=== PATIENT | male | born 1940 | race Caucasian/White ===

== ENCOUNTER 2018-04-09 16:18 | Emergency (ER) | payer OTHER, SELFPAY ==
[2018-04-09 16:19] VITALS: BP 140/79; PULSE 61; RESP 16; TEMP 36.7; O2SAT 95; BMI 31.4
--- NOTE | 2018-04-09 16:39 | CT_ITS ---
STUDY: CT BRAIN WITHOUT CONTRAST REASON FOR EXAM: Male, 78 years old. Dizziness and fall RADIATION DOSAGE (If Supplied By Facility): CTDIvol = ( 44.99 ) mGy, DLP = ( 728.62 ) mGycm TECHNIQUE: Transaxial CT imaging of the brain was performed without administration of intravenous contrast material. Individualized dose optimization techniques were used for this CT. COMPARISON: None. FINDINGS: Normal soft tissue structures. Normal calvarium. There is an acute on chronic moderately sized left subdural hematoma with largest fluid pocket measuring roughly 11.5 cm AP. Fluid/fluid level is noted. Several internal septations are noted. Small amount of rightward mass effect and midline shift. Midline shift measures roughly 7 mm. No evidence of uncal herniation at this time.. There are areas of decreased attenuation within the white matter tracts of the supratentorial brain, consistent with microvascular disease changes. Normal basal ganglia and thalami. Normal brainstem. There is mild cerebellar atrophy. There are no findings of an acute ischemic infarction. There is mucoperiosteal inflammatory disease of the paranasal sinuses consistent with mild chronic sinusitis. 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 Small amount of rightward midline shift and mass effect. Fluid fluid level is noted N.B. : The above information has been verbally conveyed by Addy Teran DO to Dr. Benjamin Ovalle, Referring Physician, on 04/09/2018 17:37:29 (ET). Electronically Signed: Addy Teran DO at 17:37 EDT Tel , Service support , N.B. : The above information has been verbally conveyed by Addy Teran DO to Dr. Benjamin Ovalle, Referring Physician, on 04/09/2018 17:37:29 (ET).
--- NOTE | 2018-04-09 16:43 | ED.VISSUMM ---
- ER Visit Summary Date of Service: 04/09/18 Chief Complaint: Confusion, dizziness, incontinence History of Present Illness: The patient is a 78 M who is not alert nor oriented. He was brought to the emergency department by family because of confusion and incontinence for 1 week. He apparently fell several weeks ago and hit his head. He does complain of headache. There is been no documented fever. He denies runny nose nasal drainage sore throat or ear pain. He denies chest pain or shortness of breath. Family has not noted a cough. There is been no vomiting or diarrhea. History is very limited since patient unable to answer most questions and family is not able to answer most questions. Physical Examination: Vital signs remarkable for blood pressure 140/79. Head is atraumatic normocephalic. No confines basal skull fracture. Pupils equal round reactive paradoxic muscle intact. Conjunctive is not pale. Nares patent with no discharge. Is no septal deviation hematoma. Oral mucosa is moist. Uvula midline. No erythema noted. Trach is midline. There is no stridor. There is no cervical lymphadenopathy. Heart is regular without murmur, gallop or rub. S1 and S2 are normal. Lungs are clear to auscultation with good movement of air bilaterally. Abdomen is soft nontender. Bowel sounds are present normal. There is areas of excoriation in the inguinal groin area secondary to urinary incontinence. He smells of urine. He is not alert nor oriented. Motor spiral 5. Sensations intact. DTRs are symmetric with no clonus or Babinski sign. Test Results: CBC is unremarkable. BMP is marked for creatinine of 2.55. Coags are pending. CT of the head reveals a significant left subdural hematoma with acute, subacute and minimal chronic blood with effacement of ventricles and midline shift. Emergency Department Course and Treatment: To evaluate patient's change in mental status with history of fall and head trauma CT of the head was obtained. In light of the fact that he is incontinent will undertake a metabolic infectious workup. Family states she has had trouble with gait. With history of incontinence gait problem and altered mental status need to including differential normal pressure hydrocephalus. Treatment Plan: Since patient does not have capacity make medical decision family was informed of findings. They spoke with friends. Decision was made to transfer to [facility] Disposition: Transfer to trauma facility with neurosurgical capability. Patient was accepted by Dr. Orellana ER physician at [facility]. Impression: Left subdural hematoma with shift This note was generated with [employer] dictation software. It may contain incorrect words, spelling, and punctuation that were not noted in review of the chart prior to signing ED Disposition - Plan for ED Patient: Chief Complaint: Dizziness Referrals: Ricardo Mckenzie DO [Primary Care Provider] -
--- NOTE | 2018-04-09 16:46 | ED.DCSUM_ITS ---
- ER Visit Summary Date of Service: 04/09/18 Chief Complaint: Confusion, dizziness, incontinence History of Present Illness: The patient is a 78 M who is not alert nor oriented. He was brought to the emergency department by family because of confusion and incontinence for 1 week. He apparently fell several weeks ago and hit his head. He does complain of headache. There is been no documented fever. He denies runny nose nasal drainage sore throat or ear pain. He denies chest pain or shortness of breath. Family has not noted a cough. There is been no vomiting or diarrhea. History is very limited since patient unable to answer most questions and family is not able to answer most questions. Physical Examination: Vital signs remarkable for blood pressure 140/79. Head is atraumatic normocephalic. No confines basal skull fracture. Pupils equal round reactive paradoxic muscle intact. Conjunctive is not pale. Nares patent with no discharge. Is no septal deviation hematoma. Oral mucosa is moist. Uvula midline. No erythema noted. Trach is midline. There is no stridor. There is no cervical lymphadenopathy. Heart is regular without murmur, gallop or rub. S1 and S2 are normal. Lungs are clear to auscultation with good movement of air bilaterally. Abdomen is soft nontender. Bowel sounds are present normal. There is areas of excoriation in the inguinal groin area secondary to urinary incontinence. He smells of urine. He is not alert nor oriented. Motor spiral 5. Sensations intact. DTRs are symmetric with no clonus or Babinski sign. Test Results: CBC is unremarkable. BMP is marked for creatinine of 2.55. Coags are pending. CT of the head reveals a significant left subdural hematoma with acute, subacute and minimal chronic blood with effacement of ventricles and midline shift. Emergency Department Course and Treatment: To evaluate patient's change in mental status with history of fall and head trauma CT of the head was obtained. In light of the fact that he is incontinent will undertake a metabolic infectious workup. Family states she has had trouble with gait. With history of incontinence gait problem and altered mental status need to including differential normal pressure hydrocephalus. Treatment Plan: Since patient does not have capacity make medical decision family was informed of findings. They spoke with friends. Decision was made to transfer to [facility] Disposition: Transfer to trauma facility with neurosurgical capability. Patient was accepted by Dr. Orellana ER physician at [facility]. Impression: Left subdural hematoma with shift This note was generated with [employer] dictation software. It may contain incorrect words, spelling, and punctuation that were not noted in review of the chart prior to signing ED Disposition - Plan for ED Patient: Chief Complaint: Dizziness Referrals: Ricardo Mckenzie DO [Primary Care Provider] -
[2018-04-09 16:52] LABS: Absolute Lymphocyte Count 1.87 X10^3/ul (0.83-4.51); Absolute Neutrophil Count 4.8 X10^3/uL (2.0-7.7); Basophil# 0.02 X10^3/uL; Basophil% 0.3 % (0-1); Eosinophil# 0.24 X10^3/uL; Hematocrit 38.4 % (40-54); Hemoglobin 12.9 g/dl (13.0-16.5); Lymphocyte # 1.87 X10^3/ul (4.0); Lymphocyte % 23.7 % (19-41); Mean Corp Hgb Conc 33.6 g/gl (32-36); Mean Corpuscular Hgb 33.5 pg (27.0-32.0); Mean Corpuscular Volume 99.7 fL (80-94); Mean Platelet Vol. 10.4 fl (6.2-12.0); Monocyte# 0.91 X10^3/uL; Monocyte% 11.5 % (0-10); Neutrophil # 4.82 X10^3/uL (2.7-7.7); Neutrophil % 61.2 % (47-70); Platelet Count 230 K/mm3 (150-450); RBC Distribution Width CV 14.6 % (11.6-14.6); RBC Distribution Width SD 52.2 fl (35.1-43.9); Red Blood Count 3.85 M/mm3 (4.6-6.2); White Blood Count 7.9 K/mm3 (4.4-11.0)
[2018-04-09 16:55] LABS: POSITIVE COUNT NO; POSITIVE DIFFERENTIAL NO; POSITIVE MORPHOLOGY NO
[2018-04-09 17:10] LABS: Anion Gap 8 (5-15); BUN 52 mg/dL (7-18); BUN/Creat Ratio 20.4 RATIO (10-20); Calcium,Total 9.2 mg/dL (8.5-10.1); Chloride 110 mmol/L (98-107); Creatinine, Serum 2.55 mg/dL (0.70-1.30); EST Glomerular Filtration Rate 26 mL/min (>60); Est Glom Filt Rate - Afr Amer 31 mL/min (>60); Estimated Creatinine Clearance 20.85 ml/min; Glucose 139 mg/dL (74-106); Sodium Level 141 mmol/L (136-145)
[2018-04-09 17:43] LABS: International Normalized Ratio 1.1; Prothrombin Time (Protime)PT. 13.9 SECONDS (11.7-14.9)
[2018-04-09 17:44] LABS: Partial Thromboplast Time 49.6 Seconds (24.1-36.2)
[2018-04-09 17:54] LABS: Bacteria 0 SEEN /hpf (None Seen); Mucous, Urine 0 SEEN /hpf (<or=2+); Red Blood Cells-Urine 0 SEEN /hpf (0-5); Squamous Epithelial Cells - UA 0 SEEN /hpf (0-5); White Blood Cells 0 SEEN /hpf (0-5)
[2018-04-09 17:58] LABS: Color, Urine Yellow (Yellow); Glucose, Dipstick Normal (Normal); Ketone-Dipstick Negative (Negative); Leukocyte Esterase-Dipstick Negative /ul (Negative); Nitrite-Dipstick Negative (Negative); Occult Blood-Urine Negative /ul (Negative); Protein-Dipstick Negative (Negative); Urine Bilirubin Dipstick Negative (Negative); Urine Clarity Clear (Clear); Urine Urobilinogen Normal (Normal)
[2018-04-09 18:02] VITALS: BP 171/85; PULSE 66; RESP 18; O2SAT 92
== END 2018-04-09 18:04 | disposition short-term general hospital (02) ==
LOC: ED 16:58
PROVIDERS: Emergency Provider Emergency Medicine; Family Provider Family Medicine; PCP Family Medicine
DX: S06.5X9A Traumatic subdural hemorrhage with loss of consciousness of unspecified duration, initial encounter (principal); W19.XXXA Unspecified fall, initial encounter; Y93.9 Activity, unspecified; Y92.9 Unspecified place or not applicable; E66.9 Obesity, unspecified; I10 Essential (primary) hypertension; E78.00 Pure hypercholesterolemia, unspecified; Z68.31 Body mass index [BMI] 31.0-31.9, adult; Z79.899 Other long term (current) drug therapy
CPT/HCPCS: 51702; 70450; 80048; 81001; 85025; 85610; 85730; 99285; J7030; A4216